=== PATIENT | male | born 1965 | race Caucasian/White ===

== ENCOUNTER → 2016-07-26 | Outpatient (CLI) | payer OTHER ==
[~2016-07-26] MED LIST: CELEXA20 MG PO; CIPRO XR 500 M500 MG PO; DESYREL100 MG PO; FLOMAX0.4 M1 PO; PAIN RELIEVER325 M1 PO; ZANTAC150 MG PO; ZYRTEC10 M1 PO
--- NOTE | ~2016-07-26 | NM8 ---
[facility] A Service of [facility] & [facility] RADIOLOGY TEXT RESULTS PATIENT: ANDREW ENGLAND LOCATION: [facility] : [birth year] UNIT #: [id number] AGE: [address]: Raji Orozco MD SEX: M ORDER DR: [id number] [facility] [address] [place], [place] [address] [id number] O MR#: [id number] Acc #: [id number] NAME: ANDREW ENGLAND : 1965 SEX: M STUDY DATE/TIME: 07/26/2016 13:27 UNIT: [facility] ROOM: STUDY DESCRIPTION: NM Bone or Joint Whole Body Attending Physician: Raji Orozco M.D. Referring Physician: Raji Orozco M.D. Ordering Physician: Raji Orozco M.D. Primary Care Physician: Andrew Yan M.D. MEDICAL IMAGING REPORT This report is preliminary unless electronic signature is present EXAM Whole-body bone scan HISTORY 51-year-old male recently diagnosed with prostate cancer 1 week ago. Bilateral elbow pain, otherwise no symptoms. COMPARISON No recent correlative examinations are available. FINDINGS Whole-body and selected spot images were performed of the axial and appendicular skeleton following intravenous administration of 28.5 mCi technetium 99m MDP. Examination demonstrates normal symmetric uptake of the agent within the axial and appendicular skeleton. Bilateral renal activity normal bladder activity noted. No abnormal uptake identified to suggest osseous metastatic disease. There is a very subtle focus of increased uptake within the left lateral skull in the region of the mastoids or parietal bone. Etiology unclear. This would be somewhat atypical for prostate metastasis. Correlation with head CT may be warranted. Correlate for any prior surgery in this region. IMPRESSION 1. No convincing evidence of osseous metastatic disease. 2. Subtle focus of increased uptake within the left skull possibly in the region of the mastoids or parietal bone. Etiology unclear, this could be on the basis of a benign pathology. Correlation with head CT may be warranted if clinically indicated. Dictated by.Goyo Martinez M.D. THIS IS AN ELECTRONICALLY VERIFIED REPORT [facility] A Service of [facility] & [facility] RADIOLOGY TEXT RESULTS PATIENT: ANDREW ENGLAND LOCATION: [facility] #: [id number] : [birth year] UNIT #: [id number] AGE: [address]: Raji Orozco MD SEX: M ORDER DR: Isai Martinez M.D. at 07/31/2016 10:59 PM Carolyn TD: 07/30/2016 22:27 JOB #: [id number] MEDICAL IMAGING REPORT Page 1 of 1 COPY
== END | disposition home or self-care (01) ==
LOC: CNUC 08:59
DX: C61 Malignant neoplasm of prostate (principal)
CPT/HCPCS: 78306; A9503

== ENCOUNTER 2016-08-30 05:14 | Inpatient (IN) | payer OTHER ==
--- NOTE | ~2016-08-30 | HP ---
Unit #: [id number] #: [id number] Patient: ANDREW ENGLAND JR [id number] [address] [place], [place] [address] [id number] MR#: [id number] NAME: ANDREW ENGLAND JR ROOM: 217 Age: 51 Sex: M Admission Date: 08/30/2016 : 1965 Attending Physician: Raji Orozco M.D. Primary Care Physician: Andrew Yan M.D. HISTORY AND PHYSICAL DATE August 31, 2016. CHIEF COMPLAINT Fever. HISTORY This 51-year-old patient of Dr. Orozco was admitted directly from the office yesterday with post procedural fevers, weakness, and malaise. He has had no voiding symptoms. He feels a little better overnight on antibiotics but still is very weak. He was diagnosed with prostate cancer and is to undergo radiation therapy. Fiducial markers were placed on August 23 with, according to the patient, coverage with Bactrim. After he finished his periprocedural coverage, he noted had some fever on Saturday and called on Saturday and was prescribed additional treatment with clindamycin and a second antibiotic which insurance declined to cover. Thus, on Saturday he developed a temperature of 103 degrees and was directly admitted yesterday. He was placed on cefepime briefly with Zosyn, then continued on Zosyn and Levaquin. He fortunately has improved overnight and defervesced. PAST MEDICAL HISTORY He describes essentially as negative other than the prostate cancer. Allergies and depression can be inferred from his MAR. PAST SURGICAL HISTORY Tonsillectomy. MEDICATIONS 1. Desyrel. 2. Celexa. 3. Flomax. 4. Zantac. 5. Zyrtec. ALLERGIES None known. FAMILY HISTORY Negative for prostate cancer. SOCIAL HISTORY Quit smoking one year ago. . Unit #: [id number] #: [id number] Patient: ANDREW ENGLAND JR REVIEW OF SYSTEMS Complete subsystem review was performed and is entirely negative other than as per the history and physical examination. In particular, he denies chills, constipation, diarrhea, pelvic pain. PHYSICAL EXAMINATION GENERAL: On examination, he is lying in bed. Awake, alert, comfortable but with the appearance of being mildly ill. VITAL SIGNS: He is afebrile now. Maximum temperature in 24 hours 101.2 degrees. Vital signs are stable with pulse 79, blood pressure 142/82, respirations 15. HEENT: Unremarkable. LUNGS: Clear. CARDIAC: Rate and rhythm regular. ABDOMEN: Large, soft, nontender. No masses or any scars or organomegaly appreciated. GENITALIA: Phallus normal, circumcised. Testes normal, descended. EXTREMITIES: No edema. NEUROLOGIC: Intact. SKIN: [place] and warm. RECTAL: Digital rectal deferred. DIAGNOSTIC STUDIES LABORATORY: WBC 15.8, down from 17.4 on admission. BUN 11, creatinine 0.9. Urine culture shows 10-25 WBCs, no bacteria identified. Urine culture is pending. IMPRESSION Postprocedural prostatitis. PLAN Will continue Levaquin and Zosyn. Hope for information to come from urine culture. Discharge home when fully improved on six weeks of antibiotic therapy. Dictated by Rigoberto Smith M.D. LEDA/valerie TD: 08/31/2016 10:15 JOB #: [id number] HISTORY AND PHYSICAL Page 1 of 1 X Rigoberto Smith MD X HISTORY AND PHYSICAL
--- NOTE | ~2016-08-30 | DS ---
Unit #: [id number] #: [id number] Patient: ANDREW ENGLAND JR [id number] [address] [address] [id number] I MR#: [id number] NAME: ANDREW ENGLAND JR ROOM: [facility] Age: 51 Sex: M Admission Date: 08/30/2016 : 1965 Discharge Date: 09/01/2016 Attending Physician: Raji Orozco M.D. Primary Care Physician: Andrew Yan M.D. DISCHARGE SUMMARY ADMITTING DIAGNOSIS Acute prostatitis. DISCHARGE DIAGNOSIS Acute prostatitis. ADMITTING INFORMATION The patient is a pleasant 51-year-old gentleman who is planning to undergo radiation therapy for prostate cancer. He underwent fiducial marker placement and did develop fevers status post his procedure. He was admitted for further management. HOSPITAL COURSE The patient was admitted. He was placed on Levaquin and Zosyn. He defervesced. His urine and blood cultures are negative. He will be discharged home on Cipro 500 mg p.o. b.i.d. x14 days. FOLLOWUP He will follow up with Dr. Orozco later this week. He will follow up sooner with any concerns including temperature greater than 101, inability to tolerate fluids, pain not controlled by pain medications, chest pain, shortness of breath, unilateral lower extremity swelling, or any other concerns. Dictated by... Rianna Werner/rama TD: 09/03/2016 14:58 JOB #: [id number] DISCHARGE SUMMARY Page 1 of 1 X Larry Guerra MD X DISCHARGE SUMMARY
--- NOTE | ~2016-08-30 | BMI ---
[facility] Nutrition Therapy DATE: 08/31/16 Patient: ANDREW Dennis TOMÁS OGDEN Physician: ELICIA Address: [address] Room/Bed: [address] [place] [address], Zip: [place] [address] Admit Date: 08/30/16 Date of : [birth year] Height: 5 9 Weight: HIGH BMI NOTE: DX: 51 Y.O. MALE ADMITTED FOR FEVER ANTHROPOMETRICS: 5'9", WT: 270# (123 KG), BMI: 39.9 DIET: REGULAR INTERVENTION: 1. REGULAR DIET RECOMMENDATIONS: 1. RECOMMEND TO CHANGE CURRENT DIET ORDER TO CC+HH TO PROMOTE GRADUAL WEIGHT LOSS TOWARDS HEALTHY BMI (19.0-25.0) OR +/-10%IBW RD WILL F/U PER PROTOCOL Respectfully, NANI REDMOND MS, RD, LD [facility] cc: client file
[2016-08-30 11:41] LABS: HEMATOCRIT 43.1 % (38.0-50.0); HEMOGLOBIN 14.7 gm/dL (13.0-16.0); MEAN CELL VOLUME 88.4 FL (83-96); MEAN CORPUSCULAR HEMOGLOBIN 30.2 PG (28-34); MEAN CORPUSCULAR HGB CONC 34.2 g/dL (30-36); MEAN PLATELET VOLUME 8.3 FL (6.5-11.5); RED BLOOD COUNT 4.87 X10e (3.90-5.60); RED CELL DISTRIBUTION WIDTH 12.9 % (11.0-15.5); WHITE BLOOD COUNT 17.4 X10e3 (4.0-10.5)
[2016-08-30] MEDS ORDERED: DESYREL100 MG PO (12:07)
[2016-08-30] MEDS ORDERED: CELEXA20 MG PO (12:07)
[2016-08-30] MEDS ORDERED: ZYRTEC10 M1 PO (12:09)
[2016-08-30] MEDS ORDERED: ZANTAC150 MG PO (12:09)
[2016-08-30] MEDS ORDERED: FLOMAX0.4 M1 PO (12:09)
[2016-08-30 12:11] LABS: CALCIUM SERUM 9.2 mg/dL (8.4-10.2); POTASSIUM 3.8 mmol/L (3.5-5.1)
[2016-08-30 13:37] LABS: URINE APPEARANCE CLEAR; URINE BILIRUBIN NEG (NEG); URINE BLOOD NEG (NEG); URINE COLOR YELLOW; URINE GLUCOSE NEG (NEG); URINE KETONE NEG (NEG); URINE LEUKOCYTE ESTERASE 1+ (NEG); URINE NITRATE NEG (NEG); URINE PH 7.5 (5-8); URINE PROTEIN NEG (NEG); URINE SPECIFIC GRAVITY 1.015 (1.003-1.035)
[2016-08-30 13:40] LABS: URBCS1 AUWI 0-2 /[HPF] (0-2); URINE BACTERIA AUWI NEG (NEGATIVE); URINE SQUAMOUS EPITHELIAL CELL NONE SEEN /[HPF]
[2016-08-31 06:14] LABS: HEMATOCRIT 40.4 % (38.0-50.0); MEAN CELL VOLUME 88.2 FL (83-96); MEAN CORPUSCULAR HEMOGLOBIN 30.5 PG (28-34); MEAN CORPUSCULAR HGB CONC 34.6 g/dL (30-36); MEAN PLATELET VOLUME 8.2 FL (6.5-11.5); RED BLOOD COUNT 4.58 X10e (3.90-5.60); RED CELL DISTRIBUTION WIDTH 12.7 % (11.0-15.5); WHITE BLOOD COUNT 15.8 X10e3 (4.0-10.5)
[2016-08-31 07:00] LABS: BUN/CREATININE RATIO 12.22; CREATININE SERUM 0.9 mg/dL (0.6-1.4); GLOM FILT RATE Estimated 99.9 mL/min (>60); POTASSIUM 4.1 mmol/L (3.5-5.1)
[2016-09-01 05:12] LABS: HEMATOCRIT 38.5 % (38.0-50.0); HEMOGLOBIN 13.1 gm/dL (13.0-16.0); MEAN CELL VOLUME 89.5 FL (83-96); MEAN CORPUSCULAR HEMOGLOBIN 30.5 PG (28-34); MEAN PLATELET VOLUME 8.5 FL (6.5-11.5); RED BLOOD COUNT 4.3 X10e (3.90-5.60); RED CELL DISTRIBUTION WIDTH 12.9 % (11.0-15.5); WHITE BLOOD COUNT 9.6 X10e3 (4.0-10.5)
[2016-09-01] MEDS ORDERED: PAIN RELIEVER325 M1 PO (16:42)
[2016-09-01] MEDS ORDERED: CIPRO XR 500 M500 MG PO (16:44)
== END 2016-09-01 17:46 | disposition home or self-care (01) | DRG 728 ==
LOC: C2A 05:14 → UNDOADMIN 10:17 → C2A 09-01 17:46
PROVIDERS: Urology
DX: N41.8 Other inflammatory diseases of prostate (principal); C61 Malignant neoplasm of prostate; R50.9 Fever, unspecified; R53.1 Weakness
CPT/HCPCS: 80048; 81003; 85027; 87040; 87086; J1650; J1956; J2543